=== PATIENT | female | born 1980 | race American Indian/Alaskan Native ===

== ENCOUNTER 2018-08-07 21:20 | Inpatient (IN) | payer MEDICAID ==
[2018-08-07 21:58] LABS: BASO # 0.1 K/uL (0.0-0.2); BASO % 0.6 % (0.0-2.0); EOS # 0.3 K/uL (0.0-0.7); EOS % 2.2 % (0.0-4.0); LYMPH # 2.8 K/uL (1.0-4.3); LYMPH % 20.4 % (20.0-40.0); MEAN CELL VOLUME 70.8 fL (81.0-99.0); MEAN CORPUSCULAR HEMOGLOBIN 23.2 pg (27.0-31.0); MEAN CORPUSCULAR HGB CONC 32.7 g/dL (33.0-37.0); MEAN PLATELET VOLUME 9.1 fL (7.2-11.7); MONO # 0.5 K/uL (0.0-0.8); NEUT % 72.8 % (50.0-75.0); NRBC % 0.1 % (0.0-2.0); RBC 5.59 Mil/uL (3.80-5.20); RED CELL DISTRIBUTION WIDTH 17.7 % (11.5-14.5); WHITE BLOOD COUNT 13.7 K/uL (4.8-10.8)
[2018-08-07 22:06] LABS: HCG,QUALITATIVE URINE NEGATIVE (NEGATIVE)
[2018-08-07 22:08] LABS: ALB/GLOB RATIO 1.6 (1.0-2.1); ALBUMIN 4.4 g/dL (3.5-5.0); ALT/SGPT 57 U/L (9-52); AST/SGOT 30 U/L (14-36); BLOOD UREA NITROGEN 7 mg/dL (7-17); CALCIUM 9.3 mg/dl (8.6-10.4); GFR NON-AFRICAN AMERICAN > 60
[2018-08-07 22:09] LABS: URINE BILIRUBIN NEGATIVE (NEGATIVE); URINE BLOOD NEGATIVE (NEGATIVE); URINE CLARITY Clear (Clear); URINE COLOR Yellow (YELLOW); URINE GLUCOSE (UA) NORMAL (Normal); URINE LEUKOCYTE ESTERASE NEG Leu/uL (Negative); URINE PROTEIN NEGATIVE (NEGATIVE)
[2018-08-07 22:10] LABS: SQUAMOUS EPITHIAL 2 /hpf (0-5); URINE BACTERIA RARE (<OCC)
[2018-08-07 22:24] LABS: BARBITURATES, UR NEGATIVE (NEGATIVE); BENZODIAZEPINES, UR NEGATIVE (NEGATIVE); OPIATES, UR NEGATIVE (NEGATIVE); PHENCYCLIDINE, UR NEGATIVE (NEGATIVE)
--- NOTE | 2018-08-07 23:18 | C.PDOC ---
History Of Present Illness 38 year old female presents to the ER requesting detox from ETOH. Denies any complaints at this time. Time Seen by Provider: 08/07/18 21:47 Chief Complaint (Nursing): Substance Abuse History Per: Patient History/Exam Limitations: no limitations Onset/Duration Of Symptoms: Days Current Symptoms Are (Timing): Still Present Suicide/Self Injury Attempted (Context): None Associated Symptoms: denies: Depression, Suicidal Thoughts Involuntary Hold By: None Recent travel outside of the [place]: No Past Medical History Reviewed: Historical Data, Nursing Documentation, Vital Signs Vital Signs: Last Vital Signs Temp 98.4 F 08/07/18 21:30 Pulse 90 08/07/18 21:30 Resp 18 08/07/18 21:30 BP 111/76 08/07/18 21:30 Pulse Ox 96 08/07/18 21:30 - Medical History PMH: Denies: Diabetes, Hepatitis, HIV, HTN, Seizures, Sexually Transmitted Disease Family History: States: Unknown Family Hx - Social History Hx Alcohol Use: Yes Hx Substance Use: Yes - Immunization History Hx Tetanus Toxoid Vaccination: No Hx Influenza Vaccination: No Hx Pneumococcal Vaccination: No Review Of Systems Constitutional: Negative for: Fever, Chills Cardiovascular: Negative for: Chest Pain, Palpitations Respiratory: Negative for: Cough, Shortness of Breath Gastrointestinal: Negative for: Nausea, Vomiting Neurological: Negative for: Weakness, Numbness Physical Exam - Physical Exam Appears: Non-toxic Skin: Normal Color, Warm, Dry Head: Atraumatic, Normacephalic Eye(s): bilateral: Normal Inspection Oral Mucosa: Moist Neck: Normal, Supple Chest: Symmetrical, No Tenderness Cardiovascular: Rhythm Regular Respiratory: Normal Breath Sounds, No Rales, No Rhonchi, No Wheezing Gastrointestinal/Abdominal: Soft, No Tenderness Back: No CVA Tenderness Neurological/Psych: Oriented x3, Normal Speech, Normal Motor Gait: Steady ED Course And Treatment - Laboratory Results Result Diagrams: 08/07/18 21:52 08/07/18 21:52 O2 Sat by Pulse Oximetry: 96 (Room air) Pulse Ox Interpretation: Normal Medical Decision Making Medical Decision Making: Labs reviewed, the patient is medically cleared for detox admission Disposition - Disposition Disposition: HOSPITALIZED Disposition Time: 00:15 Condition: STABLE Forms: [facility] (Mongolian) - POA Present On Arrival: None - Clinical Impression Clinical Impression: Alcohol dependence - PA / [employer] / Resident Statement /DO has reviewed & agrees with the documentation as recorded. - Scribe Statement The provider has reviewed the documentation as recorded by the Scribariana Neely All medical record entries made by the Wade were at my direction and personally dictated by me. I have reviewed the chart and agree that the record accurately reflects my personal performance of the history, physical exam, medical decision making, and the department course for this patient. I have also personally directed, reviewed, and agree with the discharge instructions and disposition.
--- NOTE | 2018-08-08 05:05 | PCM.BM ---
<Estefani Tyler - Last Filed: 08/08/18 05:03> Treatment Plan Problems - Problems identified on initial assessmt Alcohol Dependence Date Initiated: 08/08/18 Time Initiated: 05:03 Assessment reference: NA Status: Active Treatment assets and liabiliti Patient Assests: ADL independent Patient Liabilities: substance abuse - Milieu Protocol Maintain good personal hygiene: daily Encourage regular showers, daily Remind patient to perform daily oral care, daily Assist patient to perform ADL's Maintain personal safety: every shift Educate patient to report safety concerns to staff, every shift Monitor environment for contraband/sharps Medication safety: Monitor for expected outcome, potential side effects: every shift, Assess barriers to learning: every shift, Assess readiness for medication education: every shift <Yue Dunaway - Last Filed: 08/10/18 18:25> - Diagnosis (1) Alcohol dependence Status: Acute Interventions: 08/08/18 18:25 * Assess 7x/week regarding severity of withdrawal * Educate regarding risks, benefits, side effects and alternatives of medications * Use Motivational Interviewing for abstinence * Use CBT for relapse prevention * Medication management for withdrawal symptoms * Encourage medication assisted treatment *
[2018-08-08] MEDS: Multiple Vitamins Tab PO SCH (09:29)
--- NOTE | 2018-08-08 14:25 | PCM.PSYCH ---
Initial Psychiatric Evaluation - Initial Psychiatric Evaluation Type of Admission: Voluntary Legal Status: Capacity Chief Complaint (in patient's own words): ""I need help" History of Present Illness and Precipitating Events: The patient is seen, chart reviewed and case discussed. This is a 38-year-old -[place] female, with 3 children aged 16, 18 and 20. The patient lives with her 20-year-old daughter and she is une mployed. The patient drinks a pint of vodka and 120 ounces of beer every day. She says she started when she was 13. Daily and problem drinking after early 20s. She had DTs but no seizures. She was in detox 4 times and rehabilitation twice. She also smokes marijuana cigarettes daily. She denies other drugs. She feels depressed and anxious but not suicidal and no jasmine or psychosis elicited. Past psych history: She was diagnosed with depression, LARISSA and used Seroquel in the past. Family psych history: Mother had depression and anxiety. Father was an alcoholic. Medical history: Overweight Current Medications: Active Medications Generic Name Dose Route Start Last Admin Trade Name Freq PRN Reason Stop Dose Admin Chlordiazepoxide 25 mg 08/08/18 00:48 Librium PO Q4 PRN alcohol withdrawal Chlordiazepoxide 25 mg 08/08/18 10:00 08/08/18 09:29 Librium PO 08/13/18 09:59 25 mg Q6 LÓPEZ Administration Taper Clonidine HCl 0.1 mg 08/08/18 00:47 08/08/18 01:28 Catapres PO 0.1 mg Q6 PRN Administration withdrawal symtpoms Escitalopram Oxalate 5 mg 08/08/18 10:45 08/08/18 11:34 Lexapro PO 5 mg DAILY LÓPEZ Administration Folic Acid 1 mg 08/08/18 10:00 08/08/18 09:29 Folic Acid PO 1 mg DAILY LÓPEZ Administration Hydroxyzine HCl 50 mg 08/08/18 08:54 08/08/18 11:50 Atarax PO 50 mg Q6H PRN Administration Anxiety Ibuprofen 600 mg 08/08/18 08:55 Motrin Tab PO Q6H PRN Pain, moderate (4-7) Multivitamins 1 tab 08/08/18 10:00 08/08/18 09:29 Hexavitamin PO 1 tab DAILY LÓPEZ Administration Thiamine HCl 100 mg 08/08/18 10:00 08/08/18 09:29 Vitamin B1 Tab PO 100 mg DAILY LÓPEZ Administration Trazodone HCl 50 mg 08/08/18 00:47 08/08/18 01:29 Desyrel PO 50 mg HS PRN Administration Insomnia Past Psychiatric History - Past Psychiatric History Previous Treatment History: Intensive Outpatient (not intensive) Pertinent Medical Hx (Current Medical&Sleep Prob, Allergies): Allergies Allergy/AdvReac Type Severity Reaction Status Date / Time No Known Allergies Allergy Unverified 08/07/18 21:33 No Known Home Med 08/07/18 Review of Systems - Psychiatric Psychiatric: Abnormal Sleep Pattern, Anhedonia, Anxiety, Change in Appetite, Difficulty Concentrating. absent: Hallucinations, Homicidal Ideation, Irritability, Paranoia, Suicidal Ideation Mental Status Examination - Personal Presentation Personal Presentation: Looks stated age - Affect Affect: Constricted - Motor Activity Motor Activity: Calm - Reliability in Providing Information Reliability in Providing Information: Good - Speech Speech: Organized - Mood Mood: Depressed, Anxious - Formal Thought Process Formal Thought Process: No Impairment - Cognitive Functions Orientation: Person, Place, Situation, Time Sensorium: Alert Attention/Concentration: Attentive Estimate of Intelligence: Average Judgement: Intact, as evidence by: Insight regarding need for hospitalization Memory: Recent intact, as evidence by: Ability to recall events of the day, Remote intact, as evidenced by: Abilit to recall sig. life events - Risk Risk: Withdrawal, Diminished functioning - Strength & Assets Inventory Strength & Assets Inventory: Cooperative - Limitations Limitations: Other DSM 5 DX - DSM 5 DSM 5 Diagnosis: Alcohol withdrawal - uncomplicated Alcohol use d/o - severe Cannabis use d/o - severe Tobacco use d/o - severe Major depression, recurrent, mild LARISSA - Recommended/Plan of Treatment Treatment Recommendations and Plan of Treatment: Taper with librium Lexapro for depresion and LARISSA Gabapentin for augmentation if needed As needed medications All risks, benefits and alternatives of the meds discussed, and the pt agreed and understood. Attend groups and activities Supportive therapy and psychoeducation ID for abstinence CBT for relapse prevention Encourage MAT Refer to rehab or IOP, and self-help groups Teach healthy lifestyle methods, i.e. diet, exercise, meditation Smoking cessation with ID Nicotine patch if needed 34 min Projected ELOS: 4-5 days Prognosis: Good w treatment - Smoking Cessation Smoking Cessation Initiated: Yes
[2018-08-09] MEDS ORDERED: Vitamins A & D Oint UD Foilpak TOP PRN (08:26)
[2018-08-09] MEDS: Multiple Vitamins Tab PO SCH (09:45)
--- NOTE | 2018-08-09 14:39 | PCM.PYCHPN ---
Psychiatric Progress Note - Psychiatric Progress Note Patient seen today, length of contact: 17 min Patient Chief Complaint: "I'm not well" Problems Identified/Issues Discussed: The pt is seen, chart reviewed, case discussed with staff. The pt is compliant with medications and reports no side-effects. Symptoms are improving but needs more time to stabilize. After care discussed, support and psychoeducation given. Medication Change: Yes (detox changes daily) Medical Record Reviewed: Yes Mental Status Examination - Cognitive Function Orientation: Person, Place, Situation, Time Memory: Intact Attention: WNL Concentration: Poor Association: WNL Fund of Knowledge: WNL - Mood Mood: Depressed, Anxious - Affect Affect: Constricted - Speech Speech: Appropriate - Formal Thought Process Formal Thought Process: No Impairment - Suicidal Ideation Suicidal Ideation: No - Homicidal Ideation Homicidal Ideation: No Goal/Treatment Plan - Goal/Treatment Plan Need for Continued Stay: Discharge may exacerbated symptoms, Severe functional impairment Progress Toward Problem(s) and Goals/Treatment Plan: Taper with librium Lexapro for depresion and LARISSA Gabapentin for augmentation if needed As needed medications All risks, benefits and alternatives of the meds discussed, and the pt agreed and understood. Attend groups and activities Supportive therapy and psychoeducation [place] for abstinence CBT for relapse prevention Encourage MAT Refer to rehab or IOP, and self-help groups Teach healthy lifestyle methods, i.e. diet, exercise, meditation Smoking cessation with [place] Nicotine patch if needed
--- NOTE | 2018-08-09 16:20 | RAD ---
HISTORY: Rehab placement COMPARISON: No prior. TECHNIQUE: Chest PA and lateral FINDINGS: LINES AND TUBES: None. LUNG AND PLEURA: The lungs are well inflated and clear. No pleural effusion or pneumothorax. HEART AND MEDIASTINUM: The heart is not enlarged. No aortic atherosclerotic calcification present. The hilar and mediastinal contours are within normal limits. SKELETAL STRUCTURES: The bony structures are within normal limits for the patient's age. VISUALIZED UPPER ABDOMEN: Normal. OTHER FINDINGS: None. IMPRESSION: No active pulmonary disease.
[2018-08-10] MEDS: Multiple Vitamins Tab PO SCH (09:23)
--- NOTE | 2018-08-10 19:09 | PCM.PYCHPN ---
Psychiatric Progress Note - Psychiatric Progress Note Patient seen today, length of contact: 15 minutes Patient Chief Complaint: I'm feeling little irritability after start of Lexapro. Also has decreased sleep. Problems Identified/Issues Discussed: Patient seen, chart reviewed, case discussed with the staff. Issues related to illness and treatment were discussed with the patient and staff. Tolerating treatment very well. Reported compliant with treatment with no adverse affects except more irritability after start of Lexapro. Will discontinue Lexapro. Patient reported feeling better with treatment. Needs more time for stabilization. Patient was calm and cooperative. Awake, alert and oriented 3. Aftercare discussed with the patient. At the time of evaluation, patient had no delusions, no auditory or visual hallucinations, no suicidal ideations or homicidal ideations. Medical Problems: Obesity Diagnostic Results: Reviewed DSM 5 Symptoms Update: Some improvement with treatment Medication Change: Yes (Discontinue Lexapro, increased trazodone dose to 100 mg) Medical Record Reviewed: Yes Mental Status Examination - Cognitive Function Orientation: Person, Place, Situation, Time Memory: Intact Attention: WNL Concentration: WNL Association: WN Fund of Knowledge: [facility] Decription of patient's judgement and insights: Fair - Mood Mood: Depressed - Affect Affect: Depressed - Speech Speech: Appropriate - Formal Thought Process Formal Thought Process: No Impairment Psychotic Thoughts and Behaviors: None - Suicidal Ideation Suicidal Ideation: No - Homicidal Ideation Homicidal Ideation: No Goal/Treatment Plan - Goal/Treatment Plan Need for Continued Stay: Remain at risks for inpatient hospitalization, Discharge may exacerbated symptoms, Severe functional impairment Progress Toward Problem(s) and Goals/Treatment Plan: Patient/staff education. Supportive therapy. CBT for relapse prevention. [place] for abstinence. Will discontinue Lexapro. We will increase the dose of trazodone to 100 mg at bedtime. Continue rest of the treatment as before. Patient wants to go to [facility] for follow-up care after discharge from the hospital. Estimated Date of D/C: 08/12/18 - Smoking Cessation Smoking Cessation Initiated: Yes
[2018-08-11] MEDS: Multiple Vitamins Tab PO SCH (09:03)
--- NOTE | 2018-08-11 16:06 | PCM.PYCHPN ---
Psychiatric Progress Note - Psychiatric Progress Note Patient seen today, length of contact: 15 minutes Patient Chief Complaint: I'm feeling better especially after no Lexapro. Problems Identified/Issues Discussed: Patient seen, chart reviewed, case discussed with the staff. Issues related to illness and treatment were discussed with the patient and staff. Tolerating treatment very well. Reported compliant with treatment with no adverse affects. Patient reported feeling better, no irritability after discontinuation of Lexapro. Patient reported feeling better with treatment. Needs more time for stabilization. Patient was calm and cooperative. Awake, alert and oriented 3. Aftercare discussed with the patient. At the time of evaluation, patient had no delusions, no auditory or visual hallucinations, no suicidal ideations or homicidal ideations. Medical Problems: Obesity Diagnostic Results: Reviewed DSM 5 Symptoms Update: Improving with treatment Medication Change: No Medical Record Reviewed: Yes Mental Status Examination - Cognitive Function Orientation: Person, Place, Situation, Time Memory: Intact Attention: WNL Concentration: WNL Association: WNL Fund of Knowledge: WN Decription of patient's judgement and insights: Fair - Mood Mood: Depressed (Much less than before) - Affect Affect: Depressed - Speech Speech: Appropriate - Formal Thought Process Formal Thought Process: No Impairment Psychotic Thoughts and Behaviors: None - Suicidal Ideation Suicidal Ideation: No - Homicidal Ideation Homicidal Ideation: No Goal/Treatment Plan - Goal/Treatment Plan Need for Continued Stay: Remain at risks for inpatient hospitalization, Discharge may exacerbated symptoms, Severe functional impairment Progress Toward Problem(s) and Goals/Treatment Plan: Patient/staff education. Supportive therapy. CBT for relapse prevention. [place] for abstinence. Continue treatment as before. Patient wants to go to [facility] for follow-up care after discharge from the hospital. Estimated Date of D/C: 08/12/18 - Smoking Cessation Smoking Cessation Initiated: Yes
--- NOTE | 2018-08-12 08:15 | PCM.PYCHDC ---
Mental Status Examination - Mental Status Examination Orientation: Person, Place, Situation, Time Memory: Intact Mood: Anxious Affect: Constricted Speech: Appropriate Attention: WNL Concentration: Poor Association: WNL Fund of Knowledge: WNL Formal Thought Process: No Impairment Suicidal Ideation: No Current Homicidal Ideation?: No Discharge Summary - Discharge Note Consultations:: List each consultation separately and include: 1. Reason for request. 2. Findings. 3. Follow-up Summary of Hospital Course include:: 1. Description of specific treatment plan utilized for patients during their course of treatmen. 2. Summarize the time- course for resolution of acute symptoms and/or regressed behaviors. 3. Describe issues identified and worked on during hospitalization. 4. Describe medication utilized. 5. Describe medical problems identified and treated. 6. Reassessment of suicide risk Summary of Hospital Course: The patient is seen, chart reviewed and case discussed. On admission: This is a 38-year-old -[place] female, with 3 children aged 16, 18 and 20. The patient lives with her 20-year-old daughter and she is unemployed. The patient drinks a pint of vodka and 120 ounces of beer every day. She says she started when she was 13. Daily and problem drinking after early 20s. She had DTs but no seizures. She was in detox 4 times and rehabilitation twice. She also smokes marijuana cigarettes daily. She denies other drugs. She feels depressed and anxious but not suicidal and no jasmine or psychosis elicited. Past psych history: She was diagnosed with depression, LARISSA and used Seroquel in the past. Family psych history: Mother had depression and anxiety. Father was an alcoholic. Medical history: Overweight Hospital course: The pt was admitted and started on treatment with psychotherapy, support, psychoeducation and medications. [place] and CBT used. The pt attended groups and activities, as well as milieu therapy. All the risks and benefits of medications are discussed and the patient understood and agreed. The pt improved with the treatments provided. After care discussed with the patient. She will go to [facility] in [facility] Note: She refused lexapro and said she would be OK without ADs. She c/o side- effects - Final Diagnosis (DSM 5) Condition upon Discharge: STABLE DSM 5: Alcohol withdrawal - uncomplicated Alcohol use d/o - severe Cannabis use d/o - severe Tobacco use d/o - severe Major depression, recurrent, mild LARISSA Disposition: REHAB FACILITY/REHAB UNIT Follow-up Treatment Plan: Continue below medications after discharge. Follow after care plan as discussed. Use relapse prevention skills Return to ER or call 911 if suicidal, homicidal or symptoms relapse. Stay away from stress, alcohol and drugs. See primary doctor regularly and get labs. Prescriptions/Medication Reconciliation: Escitalopram [Lexapro] 10 mg PO DAILY #30 tab traZODone [Desyrel] 50 mg PO HS PRN #30 tab PRN Reason: Insomnia
[2018-08-12] MEDS: Multiple Vitamins Tab PO SCH (09:04)
[2018-08-12 10:54] VITALS: BP 129/89; PULSE 85; RESP 18; TEMP 98.2; O2SAT 99
== END 2018-08-12 09:50 | DRG 772 ==
LOC: C.ER 21:20 → C.7D 08-08 00:15
PROVIDERS: ADMIT Psychiatry & Neurology Psychiatry; ATTEND Psychiatry & Neurology Psychiatry
PROC: HZ2ZZZZ Detoxification Services for Substance Abuse Treatment (ICD-10-PCS; principal; 2018-08-08)
PROC: HZ52ZZZ Individual Psychotherapy for Substance Abuse Treatment, Cognitive-Behavioral (ICD-10-PCS; 2018-08-08)
PROC: HZ59ZZZ Individual Psychotherapy for Substance Abuse Treatment, Supportive (ICD-10-PCS; 2018-08-08)
PROC: HZ56ZZZ Individual Psychotherapy for Substance Abuse Treatment, Psychoeducation (ICD-10-PCS; 2018-08-08)
DX: F10.231 Alcohol dependence with withdrawal delirium (principal); F33.0 Major depressive disorder, recurrent, mild; F12.90 Cannabis use, unspecified, uncomplicated; E66.3 Overweight; Z72.0 Tobacco use; Z81.1 Family history of alcohol abuse and dependence; Z81.8 Family history of other mental and behavioral disorders